=== PATIENT | female | born 1965 ===

== ENCOUNTER 2020-01-26 10:38 | Outpatient (CLI) | payer BC ==
--- NOTE | 2020-01-26 12:02 | BD ---
BONE DENSITOMETRY USING DEXA: Date: 01/26/2020 HISTORY: Postmenopausal screening for osteoporosis. FINDINGS: Lumbar Spine: BMD (g/cm2) L1 0.893 T-Score: -0.9 Z-Score: 0.1 L2 0.893 T-Score: -1.2 Z-Score: -0.2 L3 0.846 T-Score: -2.2 Z-Score: -1.1 L4 0.863 T-Score: -1.8 Z-Score: -0.7 L1-L4 0.873 T-Score: -1.6 Z-Score: -0.5 Femoral Neck: 0.829 T-Score: -0.2 Z-Score: 0.7 Total Femur: 1.002 T-Score: 0.5 Z-Score: 1.1 The 10 year fracture risk for a major osteoporotic fracture is 2.8% and for a hip fracture is 0.1%. IMPRESSION: Osteopenia. POS: [facility]
== END 2020-01-26 10:39 | disposition home or self-care (01) ==
LOC: BICMAMMO 10:38
PROVIDERS: ATTEND Obstetrics & Gynecology
DX: Z13.820 Encounter for screening for osteoporosis (principal); M85.89 Other specified disorders of bone density and structure, multiple sites
CPT/HCPCS: 77080